=== PATIENT | female | born 1955 | race Caucasian/White ===

== ENCOUNTER 2016-09-27 17:42 | Emergency (ER) | payer OTHER ==
[2016-09-27] MEDS ORDERED: NS 0.9% 1000 ML* 1,000 ML IV ONE (18:19)
[2016-09-27] MEDS ORDERED: Ondansetron INJ* 2 MG/ML VIAL IV ONE (18:19)
[2016-09-27] MEDS ORDERED: Morphine INJ* 2 MG/ML 1 ML SYRINGE IV ONE ×3 (18:19→20:37)
--- NOTE | 2016-09-27 18:30 | ED ---
Adult Trauma - HPI Summary HPI Summary: Lt hand dominnant pt here w/ fall from 6' ladder while cleaning gutters. Ladder was a little "neil" and before she could adjust, she fell. She was almost at the top of the ladder and she is 5'6" herself. She jumped from the ladder into some bushes near by and landed on Rt side. She now has Rt shoulder and arm pain w/ deformity. She remained in fischer until ambulance crew removed her. She was able to stand w/o pain or difficulty other than in her Rt arm/shoulder. She denies numbness, tingling in arm. Reports she tried to move her arm at one point but it seemed to flop around. Denies hitting her head, LOC, [place], visual change, photophobia, phonophobia, vomiting. She had some nausea on the ambulance ride over but suspects that was from pain as her arm is not splinted and she's received no pain medications. Denies back pain, chest pain, pelvic pain, ab pain, LE pain. When discussed starting medication for pain through IV, she requests a small dose as she's sensitive to medications. Has not eaten since lunch. - History of Current Complaint Chief Complaint: EDExtremityUpper Stated Complaint: FALL Time Seen by Provider: 09/27/16 18:04 Hx Obtained From: Patient Pain Intensity: 9 - Allergy/Home Medications Allergies/Adverse Reactions: Allergies Allergy/AdvReac Type Severity Reaction Status Date / Time No Known Allergies Allergy Verified 09/29/16 10:34 PMH/Surg Hx/FS Hx/Imm Hx Previously Healthy: Yes Endocrine/Hematology History: Denies: Hx Anticoagulant Therapy, Hx Blood Disorders Musculoskeletal History: Reports: Hx Osteoporosis - "mild" per pt Sensory History: Reports: Hx Contacts or Glasses Opthamlomology History: Reports: Hx Contacts or Glasses - Cancer History Hx Chemotherapy: No Hx Radiation Therapy: No Infectious Disease History: No Infectious Disease History: Denies: Traveled Outside the [place] in Last 30 Days - Social History Lives: Alone Alcohol Use: None Hx Substance Use: No Substance Use Type: Reports: None Hx Tobacco Use: No Smoking Status (MU): Never Smoked Tobacco Review of Systems Constitutional: Negative Eyes: Negative ENT: Negative Cardiovascular: Negative Respiratory: Negative Gastrointestinal: Negative Positive: no symptoms reported Musculoskeletal: Other - see HPI Skin: Other - abrasions over Rt shoulder/arm Neurological: Other - see HPI Psychological: Normal All Other Systems Reviewed And Are Negative: Yes Physical Exam Triage Information Reviewed: Yes Vital Signs On Initial Exam: Initial Vitals Temp Pulse Resp BP Pulse Ox 98.4 F 54 17 167/81 100 09/27/16 17:52 09/27/16 17:52 09/27/16 17:52 09/27/16 17:52 09/27/16 17:52 Vital Signs Reviewed: Yes Appearance: Positive: Well-Appearing, Well-Nourished, Pain Distress Skin: Positive: Warm, Dry - superficial abrasions over Rt shoulder and tricep area - she has cinching of skin over anterior shoulder and swelling about posterior shoulder/proximal tricep area Head/Face: Positive: Normal Head/Face Inspection Eyes: Positive: Normal, EOMI, DWAINE, Conjunctiva Clear ENT: Positive: Normal ENT inspection, Hearing grossly normal, Pharynx normal, TMs normal - no hemotympanum. Negative: Nasal drainage - no signs of epistaxis Dental: Negative: Dental Fracture @ Neck: Positive: Supple, Nontender Respiratory/Lung Sounds: Positive: Clear to Auscultation, Breath Sounds Present. Negative: Subcutaneous Emphysema, Tracheal Deviation Cardiovascular: Positive: Normal, RRR, Pulses are Symmetrical in both Upper and Lower Extremities, S1, S2. Negative: Murmur, Rub, Leg Edema Left, Leg Edema Right Abdomen Description: Positive: Nontender, Soft Bowel Sounds: Positive: Present Musculoskeletal: Positive: Strength/ROM Intact - Lt arm, B/L LE's, Limited @ - Rt UE limited - shoulder, elbow not moving d/t pain; wrist and fingers move but are painful, Pain @ - Rt shoulder, humerus and equivocal elbow exam; forearm, wrist, hand and phalanges are NTTP; spinous pp, chest, hips and LE's are NTTP Neurological: Positive: Normal, Sensory/Motor Intact, Alert, Oriented to Person Place, Time, CN Intact II-III Psychiatric: Positive: Normal - concerned but calm and cooperative - has a great deal of pain w/ any attempt to adjust Rt UE, including removing watch and gardening glove on her hand here - Meme Coma Scale Coma Scale Total: 15 Diagnostics - Vital Signs Vital Signs Temp Pulse Resp BP Pulse Ox 09/27/16 17:52 98.4 F 54 17 167/81 100 - Laboratory Lab Statement: Any lab studies that have been ordered have been reviewed, and results considered in the medical decision making process. Re-Evaluation - Re-Evaluation First Eval Change: Unchanged - s/p 1 mg morphine Second Eval Change: Improved - pain improved after 2mg of morphine but only lasted for an hour or so Third Eval Change: Improved - pt received a 3rd dose of morphine, again 2mg. Pain improved and she felt more comfrotable to go home. PO meds provided upon d/c and instructions on how to take them. She agrees w/ plan and understands she needs to ask Dr. Zheng about further pain control at appt tomorrow - either continue norco or change to percocet. Adult Trauma Course/Dx - Course Course Of Treatment: Pt here w/ fall from >6' and landing on Rt side 2/ c/o Rt shoulder/arm pain. After a thorough full body examination, it is found that she has a Rt humeral fx, comminuted and anteriorly displaced w/o hematoma and N/V intact. Discussed w/ Dr. Zheng - viki, pain control and she will see pt in office tomorrow morning. Pt agrees w/ plan and aware of when to return to ED. Phys Assistant is w/ her and also voices understanding - he will be assisting her home and coordinating care until she is more independent. - Diagnoses Provider Diagnoses: Closed comminuted right humeral fracture - Physician Notifications Discussed Care Of Patient With: Dr. Zheng - CT, ice, sling, pain meds - tomorrow morning or Sunday morning. Discharge - Discharge Plan Condition: Stable Disposition: HOME Patient Education Materials: Arm Fracture in Adults (ED) Referrals: Cholo Zheng MD [Medical Doctor] - Additional Instructions: Rest in sling Ice You may take ibuprofen 600mg every 6 hours with food alternating with norco every 4 hours for pain Follow-up with Dr. Zheng tomorrow - call in the morning to schedule an appointment. If you do not feel the norco is controlling your pain and want to try percocet, please discuss with Dr Zheng at appointment. *If you develop numbness, discoloration of your hand, return to ED
[2016-09-27] MEDS ORDERED: Morphine INJ* 2 MG/ML 1 ML SYRINGE ONE (18:58)
--- NOTE | 2016-09-27 20:06 | RAD ---
INDICATION: Right shoulder and arm pain after a fall from a ladder. COMPARISON: None. TECHNIQUE: 2 views of the right shoulder, 2 views of the right humerus and 3 views of the right elbow were obtained. FINDINGS: There is a comminuted fracture at the surgical neck of the right humerus. On the scapular view of the right shoulder the humeral shaft appears to be dislocated anteriorly relative to the humeral head. In all other acquired views there appears to be only modest dislocation at the fracture site with a small degree of impaction. Remaining visualized bones are intact and properly aligned. IMPRESSION: COMMINUTED AND MINIMALLY DISPLACED FRACTURE THROUGH THE SURGICAL NECK OF THE RIGHT HUMERUS.
--- NOTE | 2016-09-27 21:28 | RAD ---
INDICATION: Further evaluation of right humeral fracture. COMPARISON: Same day radiograph of the injured area. TECHNIQUE: Noncontrast CT examination of the right shoulder. Axial images were acquired and sagittal and coronal reformats were created and independently analyzed. FINDINGS: Again seen is a displaced and comminuted fracture through the proximal metaphysis and surgical neck of the right humerus. At the time of this CT imaging the humeral head is adequately articulated with the bony glenoid labrum. The distal fractured shaft of the right humerus is displaced anteriorly and exhibits anterior displacement relative to the humeral head. The remaining visualized bones including the clavicle, scapula and some of the right ribs are intact and appropriately aligned. There is expected soft tissue swelling in the surrounding musculature of the shoulder. There is no drainable hematoma. IMPRESSION: Comminuted fracture through the proximal right humerus and surgical neck as described above.
[2016-09-27] MEDS ORDERED: HYDROcodone/ACETAMIN 5-325 MG* 1 TAB PO ONE (21:45)
[2016-09-27 22:03] VITALS: BP 128/76
== END 2016-09-27 22:03 | disposition home or self-care (01) ==
LOC: ED 17:42
DX: S42.212A Unspecified displaced fracture of surgical neck of left humerus, initial encounter for closed fracture (principal); W11.XXXA Fall on and from ladder, initial encounter; Y93.H9 Activity, other involving exterior property and land maintenance, building and construction; Y92.9 Unspecified place or not applicable; M81.0 Age-related osteoporosis without current pathological fracture
CPT/HCPCS: 96360; 96374; 96375; 96376; 99285; J2270; J2405

== ENCOUNTER 2016-09-29 10:22 | Day surgery (SDC) | payer OTHER ==
--- NOTE | 2016-09-28 16:35 | HP ---
HISTORY AND PHYSICAL: DATE OF ADMISSION: 09/29/2016. HISTORY OF PRESENT ILLNESS: Bre Espinal is a 60-year-old left-hand dominant female, who fell off the ladder on 09/27/16 when she landed very hard onto her right side. She states that she had immediate pain and deformity with puckering of the skin and went to the ER. She has been unable to weight bear. She denies any other injury. She is able to walk comfortably. She is present with her family friend today. She denies any numbness or tingling. She does have intense amounts of pain. She has been taking hydrocodone for the pain. Pain is 10/10. She was placed in a sling, immobilizer and has been doing okay. She has been taking ibuprofen and [place] for the pain. The pain is, as I said , 10/10. She otherwise is in no acute distress. She has distracting injury but has no other complaints otherwise. PAST MEDICAL HISTORY: Negative. PAST SURGICAL HISTORY: Significant for breast lumpectomy in 1991, right hip replacement by Dr. Rosario in 2012. FAMILY HISTORY: Diabetes, heart disease, high blood pressure in her father, cancer in her mother. SOCIAL HISTORY: She lives alone. 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 She denies tobacco. Denies alcohol. She exercises regularly. She likes to swim. She also gardens, golfs, and plays music. She is left-hand dominant. REVIEW OF SYSTEMS: A 14-point review of systems was reviewed with the patient, significant for seasonal allergies as well as the above complaints. Otherwise, the remainder of systems are negative. PHYSICAL EXAMINATION GENERAL: She is in no acute distress. She is well developed and well nourished. She is alert and oriented x3. She has pleasant mood and normal affect. She appears to be in distress if she is moving the shoulder; however, sitting at rest, she is comfortable. HEENT: EOMI. CHEST: Clear to auscultation bilaterally. HEART: Regular rate and rhythm. ABDOMEN: Soft and nontender. EXTREMITIES: Examination of the right shoulder demonstrates the skin is intact , although there is puckering anteriorly of the skin. She is exquisitely tender to just if any kind of motion. She is nontender about the elbow, wrist, or hand. She is able to perform a thumbs up, okay sign, flex, extend, cross finger and abduct her digits. She is fully sensate to light touch about the first dorsal webspace, index versus small finger as well as the lateral deltoid. She has a 2+ radial pulse. DIAGNOSTICS STUDIES/LAB DATA: X-rays and CT scan reviewed. X-rays demonstrate a displaced two-part fracture with comminution of the surgical neck. CT scan also reveals the complete displacement with no apposition of the bone. ASSESSMENT AND PLAN: She has a proximal humerus fracture that is unacceptably displaced and angulated. She is in exquisite amount of pain at this point. We talked about treatment options. I think surgery is her best option. Surgery will be open reduction and internal fixation with plates and screws. I would like to take care of this as soon as possible. As she recently ate today, I would like to do it tomorrow morning. She verbalized understanding. We reviewed the risks and benefits of the surgery versus nonoperative treatment, surgery includes risks of bleeding, infection, damage to nerves, vessels, surrounding structures, the wound not healing, persistent pain, need for further surgery, avascular necrosis, symptomatic hardware, failure of the bone, stiffness, loss of motion, persistent pain, need for further surgery, and risks of anesthesia. She has elected to proceed. We will prescribe her more hydrocodone and plan to fix this tomorrow. She will be NPO after midnight. I will see her back in the office 10 to 14 days postop. CC: Primary Care Physician* [id number]/CHRISTINA #: [id number] ELOY
[~2016-09-29 10:22] MED LIST: Buffered Lidocaine 1% SYRIN* 5 ML/SYR SYRINGE ONE; Famotidine IV* 10 MG/ML 2 ML (20 mg) IV ONE; Famotidine IV* 10 MG/ML 2 ML (20 mg) ONE; Metoclopramide TAB* 10 MG ONE; Metoclopramide TAB* 10 MG PO ONE; ceFAZolin 2 GM PREMIX(*) 2 GM/50 ML BAG IVPB ONE
[2016-09-29] MEDS ORDERED: fentaNYL* 50 MCG/ML 5 ML VIAL (250 MCG VIAL) ONE (10:36)
[2016-09-29] MEDS ORDERED: Dexamethasone IV* 4 MG/ML 1 ML (4 MG) ONE (10:36)
[2016-09-29] MEDS ORDERED: Lidocaine 2% PF * 5 ML VIAL ONE (10:36)
[2016-09-29] MEDS ORDERED: Propofol* 10 MG/ML 20 ML BTL IV PUSH ONE (10:36)
[2016-09-29] MEDS ORDERED: Ketorolac INJ* 30 MG/ML 1 ML VIAL ONE (10:36)
[2016-09-29] MEDS ORDERED: Ondansetron INJ* 2 MG/ML VIAL ONE (10:36)
[2016-09-29] MEDS ORDERED: Cisatracurium* 2 MG/ML MDV 5 ML ONE (10:37)
[2016-09-29] MEDS ORDERED: Midazolam* 1 MG/ML 5 ML VIAL (5 MG) ONE (10:37)
[2016-09-29] MEDS ORDERED: KETAMINE HCL* 50 MG/ML 10 ML VIAL ONE (10:37)
[2016-09-29] MEDS ORDERED: Bupivacaine 0.25% EPI 200,000* 30 ML SDV ONE (10:48)
[2016-09-29] MEDS ORDERED: EPHEDrine (Pressors)* 50 MG/ML VIAL ONE (11:29)
[2016-09-29] MEDS ORDERED: Atropine 1MG/ML INJ* 1 ML VIAL ONE (11:59)
--- NOTE | 2016-09-29 14:18 | RAD ---
INDICATION: Right shoulder ORIF, fracture, fall COMPARISONS: September 27, 2016 TECHNIQUE: Fluoroscopy was provided for a surgical procedure. Total fluoroscopy time is: 60.1 seconds FINDINGS: Spot images demonstrate internal fixation of the right humerus IMPRESSION: FLUOROSCOPY WAS PROVIDED FOR A SURGICAL PROCEDURE CPT II Codes: 6045F
[2016-09-29] MEDS ORDERED: HYDROmorphone* 1 MG/ML 1 ML SYR IV PRN (14:37)
[2016-09-29] MEDS ORDERED: oxyCODONE/Acetamin 5/325 MG* TAB PO PRN (14:37)
[2016-09-29] MEDS ORDERED: Ondansetron INJ* 2 MG/ML VIAL IV PRN (14:37)
[2016-09-29] MEDS ORDERED: fentaNYL* 50 MCG/ML 2 ML VIAL (100 MCG VIAL) IV PRN (14:37)
[2016-09-29 17:36] VITALS: BP 119/67
[2016-09-29] MEDS ORDERED: Ibuprofen TAB* 600 MG ONE (17:38)
--- NOTE | 2016-09-30 09:25 | OP ---
OPERATIVE REPORT: DATE OF OPERATION: 09/29/16 DATE OF : 57 SURGEON: Cholo Zheng MD RISK AND INSURANCE CONSULTANT: MARGARITO Alvarenga ANESTHESIOLOGIST: Dr. Yao Johnson. ANESTHESIA: General. PRE-OP DIAGNOSIS: Right displaced proximal humerus fracture through the surgical neck. POST-OP DIAGNOSIS: Right displaced proximal humerus fracture through the surgical neck. OPERATIVE PROCEDURE: Open reduction internal fixation of the right proximal humerus. COMPLICATIONS: None. ESTIMATED BLOOD LOSS: 50. IMPLANTS: Synthes proximal humerus plate with the appropriate length screws and a size 3-hole plate . INDICATIONS: Bre Espinal is a 60-year-old left hand dominant female who presented after a fall f rom the ladder, where she injured her right shoulder. She was diagnosed with a completely displaced proximal humerus fracture on the right side. After an extensive discussion of the risks and benefi ts of surgery versus non-operative treatment, she is elected to proceed with surgical treatment. Ri sks include but are not limited to bleeding, infection, damage to nerves, vessels, surrounding struc tures, bone nonhealing, persistent pain, need for further surgery, risk of AVNs, stiffness, scarring , persistent pain, risk of anesthesia. She has elected to proceed. DESCRIPTION OF PROCEDURE: The patient was greeted in the preoperative area by the attending surgeon . Correct extremity was marked and consent was confirmed. The patient was then brought back to the operating suite where she was placed in supine on the operating table. She then underwent general anesthesia and endotracheal intubation after which the patient was gently positioned in the [facility] chair position with a hand table. The C-arm was appropriately positioned. The right shoulder wa s then prepped and draped in the usual sterile fashion beginning with chlorhexidine soap, scrub, and alcohol wipe and a final prep of ChloraPrep. After appropriate surgical pause indicating side, site, procedure, administration of antibiotics, a deltopectoral interval incision was then made with 15 blade. Soft tissue carefully dissected to expo se the deltopectoral groove. There was an obvious deformity due to the shaft being anteriorly and s uperiorly located. The cephalic vein was identified distally and tracked proximally to find the del topectoral interval. Clavipectoral fascia was identified. Retractors were carefully placed with ca re not to try to damage the humerus. The undersurface of the pec was identified and adhesions were released. The conjoined tendon was identified and again adhesions were released. The biceps was id entified. The shaft was easily readily available just underneath the deltoid. Retractors were care fully placed to help facilitate exposure. The humeral head and neck were displaced posteriorly but the head was located. With gentle reduction maneuvers using a freer to help facilitate the shaft th at is gently reduced to the head. At this point, further exposure of the fracture was then done. Savi king biceps was identified in good condition. Under x-ray guidance, the humerus was reduced. This wa s then stabilized with a 2.0 K-wire provisionally. At this point, a plane was chosen. A Synthes pr oximal humerus 3-hole plate was then chosen. This was first secured and then a K-wire was placed in the proximal hole to make sure that the plate height was appropriate. A 3.5 drill was used to dril l 3.5 cortical screw in the shaft distally to fix to the bone. Then carefully the locking guides we re then placed and the 2.8 drill bit were used to drill the proximal humerus locking screws using lo cking guides. The appropriate length screws were then placed with care to make sure they did not pe netrate the subchondral bone. Once the proximal screws were filled with the exception of one that w as very posteriorly based, the distal nonlocking screw was also placed finally. The wounds were copywriting intern iously irrigated with sterile saline. #5 Ethibond was passed through the subscapularis, supraspinat us, and infraspinatus and then passed and secured over the plate. The wounds were copiously irrigat ed again. The shoulder was taken to range of motion. She was found to be externally rotated to abo ut 65 degrees, internally rotated to the posterior hip. I was able to forward flex to do 150 degree s in abductor to 110 degrees without any impingement. The deltopectoral groove was closed with smita bsorbable #2 Ethibond. One further irrigation was done and the subcutaneous and skin were closed in layers with 2-0 Vicryl and 3-0 Monocryl. Sterile dressings were applied. The anterior wound was i njected with 30 cc of 0.25% Marcaine. She was placed in a sling with a Cryo/Cuff. She was awoken f rom anesthesia and transferred to PACU in stable condition. POSTOPERATIVE PLAN: She will be non-weightbearing for six weeks. She will be in the sling for six weeks during that time but allowed to work on exercise and starting postop day 1, she will start the rapy within the first week, which would be passive motion. We will start physical therapy within th e first one to two weeks. She will be discharged on pain medication as well as antibiotics. A neuro check was done in the PACU. She was sensing a light touch about the first dorsal webspace, index, and long finger and on the ulnar aspect of the small finger. She is able to perform a thumbs up, ok ay sign, flex and extend cross finger and abduct her digits and she had 2+ radial pulse. She was sanju palafox comfortable in the PACU. I will see the patient back in about 10 to 14 days. [id number]/[facility] #: [id number]
== END 2016-09-29 18:00 | disposition home or self-care (01) ==
LOC: OR 10:22
PROVIDERS: ATTEND Orthopaedic Surgery
DX: S42.221A 2-part displaced fracture of surgical neck of right humerus, initial encounter for closed fracture (principal); W11.XXXA Fall on and from ladder, initial encounter; Y92.9 Unspecified place or not applicable
CPT/HCPCS: A9270-GY; C1713; C1776; J0461; J0690; J1100; J1885; J2250; J2405; J2704; J3010